=== PATIENT | male | born 1970 | race African-American/Black ===

== ENCOUNTER 2019-08-07 15:24 | Emergency (ER) | payer OTHER | END 2019-08-07 16:20 | disposition home or self-care (01) | LOC: NAV ERS 15:24 | DX: M25.511 Pain in right shoulder (principal); M54.2 Cervicalgia; G89.29 Other chronic pain; I10 Essential (primary) hypertension; G47.30 Sleep apnea, unspecified; Z79.899 Other long term (current) drug therapy | CPT/HCPCS: 99283 ==

== ENCOUNTER 2023-05-29 11:40 | Emergency (ER) | payer MEDICARE | END 2023-05-29 12:30 | disposition home or self-care (01) | LOC: NAV ERS 11:40 | DX: T18.9XXA Foreign body of alimentary tract, part unspecified, initial encounter (principal); I10 Essential (primary) hypertension; Z79.899 Other long term (current) drug therapy | CPT/HCPCS: 74022 ==

== ENCOUNTER 2023-06-03 10:02 | Emergency (ER) | payer MEDICARE, SELFPAY ==
[2023-06-03] MEDS ORDERED: Boostrix 0.5 ML (Tdap) VIAL (>/=7 yrs of age) ONE (10:33)
[2023-06-03] MEDS ORDERED: Ibuprofen 200 MG TAB ONE (11:01)
== END 2023-06-03 11:07 | disposition home or self-care (01) ==
LOC: NAV ERS 10:02
DX: S91.331A Puncture wound without foreign body, right foot, initial encounter (principal); M25.461 Effusion, right knee; I10 Essential (primary) hypertension; Z79.899 Other long term (current) drug therapy; Z23 Encounter for immunization; W45.0XXA Nail entering through skin, initial encounter
CPT/HCPCS: 90471; 90715